=== PATIENT | female | born 1990 | race African-American/Black ===

== ENCOUNTER 2016-03-28 11:44 | Emergency (ER) | payer OTHER ==
[~2016-03-28] VITALS: Ht 165.1 cm; Wt 81.6 kg
[~2016-03-28 11:44] MED LIST: MOBIC 15MG15 MG PO; NAPROSYN375 MG PO; TYLENOL #31 TAB PO
--- NOTE | 2016-03-28 12:52 | ED GENERAL ADULT ---
History of Present Illness General Chief Complaint: Nausea, Vomiting, Diarrhea Stated Complaint: NVD; CONGESTION; COUGH Source: patient Exam Limitations: no limitations Vital Signs & Intake/Output Vital Signs & Intake/Output Vital Signs Date Time Temp Pulse Resp B/P Pulse O2 O2 Flow FiO2 Ox Delivery Rate 03/28 1519 97.0 82 18 112/80 Room Air 03/28 1410 99 Room Air 03/28 1217 96.8 84 20 132/64 95 Room Air Allergies Coded Allergies: No Known Allergies (03/28/16) Reconcile Medications Benzonatate (Tessalon Perle) 100 MG CAPSULE 1 CAP PO TID PRN cough Hyoscyamine (Levsin) 0.125 MG TABLET 1 TAB PO Q4 PRN abdominal spasms Mometasone Furoate (Nasonex) 50 MCG SPRAY.PUMP 2 SPRAY NASB DAILY congestion Ondansetron (Zofran Odt) 4 MG TAB.RAPDIS 1 TAB SL TID PRN nausea Triage Note: C/O VOMITING, DIARRHEA, COUGH, SORE THROAT X 4 DAYS. DENIES . Triage Nurses Notes Reviewed? yes Onset: Gradual Duration: day(s): (4) Timing: remote history Injury Environment: home Severity: moderate Severity Numbers: 7 No Modifying Factors: none : No Patient currently breastfeeds: No HPI: Patient is a 26-year-old female presenting to the emergency department to complain of nausea vomiting and diarrhea, diffuse abdominal discomfort, upper respiratory congestion nothing bad for the past 4 days. Positive malaise. Denies any documented fevers. Her kids are sick with similar symptoms. She does not get a flu vaccine this year. She's been able tolerate fluids but no solids today. Denies any blood in the stool. She does report several episodes, "too many to count" of diarrhea over the past couple days. She feels weak. Denies recent travel. No chest pain or palpitations. No shortness of breath. (JACK MARTIN,DORINDA) Past History Travel History Traveled to [place] past 21 day No Medical History Any Pertinent Medical History? see below for history Neurological: NONE EENT: NONE Cardiovascular: NONE Respiratory: NONE Gastrointestinal: NONE Hepatic: NONE Renal: NONE Musculoskeletal: NONE Psychiatric: NONE Endocrine: NONE Surgical History Surgical History: non-contributory Psychosocial History What is your primary language Persian Tobacco Use: Current Daily Use Daily Tobacco Use Amount/Type: =< 4 Cigarettes daily ETOH Use: denies use Family History Hx Contributory? No (DORINDA SAWYER) Review of Systems Review of Systems Constitutional: Reports: malaise. Comments Review of systems: See HPI, All other systems negative. Constitutional, no weight loss HEENT: No visual changes Cardiovascular: No chest pain ,palpitation , orthopnea or ankle swelling Skin, no jaundice no rashes Respiratory: No dyspnea sputum or hemoptysis GI: Positive nausea, vomiting, diarrhea : No dysuria No hematuria Muscle skeletal: no back pain, no neck pain, Neurologic: No numbness no confusion Psych: No stress anxiety or depression,. Heme/endocrine: No bruising no bleeding no polyuria or polydipsia Immunology: No splenectomy or history of AIDS (DORINDA SAWYER) Physical Exam Physical Exam General Appearance: well developed/nourished, no apparent distress, alert, awake , comfortable Comments: Well-developed well-nourished person in no acute distress HEENT: Pupils equally round and reactive to light and accommodation. Nose is atraumatic. External auditory canal and Tympanic membranes clear. Pharynx normal. No swelling or edema. Mild sinus tenderness palpation of the maxillary sinuses. Clear nasal discharge bilaterally. Neck: Supple, no lymphadenopathy, normal range of motion without pain or tenderness Back: Nontender, no CVA tenderness. Cardiovascular: Regular rate and rhythms no murmurs rubs or gallops, normal JVP Respiratory: Chest nontender. No respiratory distress.breath sounds clear to auscultation bilaterally Abdomen: Soft, nontender nondistended, no appreciable organomegaly. Normal bowel sounds. No ascites, no rebound or guarding. Extremity: No edema Neuro: Alert oriented x3 Skin: No appreciable rash on exposed skin, skin is warm and dry. Psych: Mood and affect is normal, memory and judgment is normal. Core Measures ACS in differential dx? No CVA/TIA Diagnosis: No Severe Sepsis Present: No Septic Shock Present: No (DORINDA SAWYER) Progress Differential Diagnoses I considered the following diagnoses in my evaluation of the patient: Viral syndrome, upper respiratory infection, sinusitis, dehydration, electrolyte abnormality, gastroenteritis, influenza Plan of Care: Orders Procedure Date/time Status CULTURE,STOOL 03/28 1258 Active C.DIFFICILE 03/28 1258 Active COMPREHENSIVE METABOLIC PANEL 03/28 1258 Complete CBC WITHOUT DIFFERENTIAL 03/28 125 Complete Laboratory Tests 03/28/16 1413: Anion Gap 8, Estimated GFR > 60, BUN/Creatinine Ratio 12.9, Glucose 80, Calcium 8.3 L, Total Bilirubin 0.4, AST 22, ALT 30, Alkaline Phosphatase 51, Total Protein 6.6, Albumin 3.7, Globulin 2.9, Albumin/Globulin Ratio 1.3 03/28/16 1336: CBC w Diff NO MAN DIFF REQ, RBC 4.25, MCV 87.5, MCH 30.1, RDW 12.4, MPV 9.3, Gran % 43.7, Lymphocytes % 44.2, Monocytes % 11.0 H, Eosinophils % 0.7, Basophils % 0.4, Absolute Granulocytes 1.3 L, Absolute Lymphocytes 1.3, Absolute Monocytes 0.3, Absolute Eosinophils 0, Absolute Basophils 0, PUBS MCHC 34.4 03/28/16 1258: Urine Test Cancelled Microbiology 03/28 1355 STOOL: Clostridium difficile Toxin A & B - RECD 03/28 135 STOOL: Stool Culture - RECD Initial ED EKG: none Comments: On arrival patient's vital stable. Patient has no abdominal pain on exam. Patient does report upper respiratory congestion, she has clear nasal discharge bilaterally with sinus tenderness to palpation bilaterally. 03/28/2016 2:53:17 PM patient feeling much better after IV hydration, Toradol and Zofran. Tolerating by mouth without difficulty. She was informed of all laboratory results. Unable to to provide urinalysis. Given DC appendicitis exclusion 4. Likely viral syndrome. Requesting work note for the past day and tomorrow. (DORINDA SAWYER) Departure Departure Time of Disposition: 1446 Disposition: HOME OR SELF CARE Condition: Stable Clinical Impression Primary Impression: Upper respiratory infection Qualifiers: URI type: unspecified viral URI Qualified Codes: J06.9 - Acute upper respiratory infection, unspecified; B97.89 - Other viral agents as the cause of diseases classified elsewhere Secondary Impressions: Diarrhea Qualifiers: Diarrhea type: unspecified type Qualified Code: R19.7 - Diarrhea, unspecified Nausea & vomiting Qualifiers: Vomiting type: unspecified Vomiting Intractability: non-intractable Qualified Code: R11.2 - Nausea with vomiting, unspecified Referrals: PATIENT HAS NO PRIMARY CARE DR (PCP/Family) Additional Instructions: Follow-up with your primary care physician collimating appointment. Increase fluids. Take Zofran as prescribed for nausea. Take Levsin as prescribed for abdominal discomfort. Use Nasonex as prescribed to help with congestion. Departure Forms: Customer Survey General Discharge Information Prescriptions: Current Visit Scripts Mometasone Furoate (Nasonex) 2 SPRAY NASB DAILY #1 INHAL Benzonatate (Tessalon Perle) 1 CAP PO TID PRN cough #30 CAP Hyoscyamine (Levsin) 1 TAB PO Q4 PRN abdominal spasms #20 TAB Ondansetron (Zofran Odt) 1 TAB SL TID PRN nausea #10 TAB (DORINDA SAWYER) PA/SCHOOL INSPECTOR Co-Sign Statement Statement: ED Attending supervision documentation- [] I saw and evaluated the patient. I have also reviewed all the pertinent lab results and diagnostic results. I agree with the findings and the plan of care as documented in the PA's/SCHOOL INSPECTOR's documentation. x I have reviewed the ED Record and agree with the PA's/SCHOOL INSPECTOR's documentation. [] Additions or exceptions (if any) to the PAs/SCHOOL INSPECTOR's note and plan are summarized below: [] (QAMAR VELASQUEZ,SEAN) Critical Care Note Critical Care Note Critical Care Time: non-applicable (DORINDA SAWYER)
[2016-03-28 13:52] LABS: ABSOLUTE BASOPHIL COUNT 0 /CUMM (0.0-0.2); ABSOLUTE EOSINOPHIL COUNT 0 /CUMM (0.0-0.7); ABSOLUTE GRANULOCYTE CT 1.3 /CUMM (1.4-6.5); ABSOLUTE LYMPH COUNT 1.3 /CUMM (1.2-3.4); ABSOLUTE MONOCYTE COUNT 0.3 /CUMM (0.10-0.60); BASOPHIL % 0.4 % (0.0-2.0); EOSINOPHIL % 0.7 % (0-5); GRANULOCYTE % 43.7 % (42.2-75.2); HEMATOCRIT 37.2 % (37-47); MEAN CORPUSCULAR HGB 30.1 PG (27.0-31.0); MEAN CORPUSCULAR HGB CONC 34.4 G/DL (33.0-37.0); MEAN CORPUSCULAR VOLUME 87.5 FL (81.0-99.0); MEAN PLATELET VOLUME 9.3 FL (7.4-10.4); PLATELET COUNT 187 /CUMM (130-400); RBC DISTRIBUTION WIDTH 12.4 % (11.5-14.5); RED BLOOD CELL CT 4.25 /CUMM (4.20-5.40)
[2016-03-28] MEDS ORDERED: TESSALON PERLE100 M1 PO (14:47)
[2016-03-28] MEDS ORDERED: NASONEX17 GM NASB (14:47)
[2016-03-28] MEDS ORDERED: ZOFRAN ODT4 M1 SL (14:47)
[2016-03-28] MEDS ORDERED: LEVSIN0.125 M1 PO (14:47)
[2016-03-28 15:19] VITALS: BP 112/80
== END 2016-03-28 15:20 ==
LOC: ERH 11:44
PROVIDERS: Physician Assistant
DX: J06.9 Acute upper respiratory infection, unspecified (principal); R19.7 Diarrhea, unspecified; R11.2 Nausea with vomiting, unspecified
CPT/HCPCS: 81025; 87045; 96374; 96375; J1885; J2405

== ENCOUNTER 2016-06-05 00:12 | Emergency (ER) | payer OTHER ==
[~2016-06-05 00:12] MED LIST changes: +LEVSIN0.125 M1 PO; +NASONEX17 GM NASB; +TESSALON PERLE100 M1 PO; +ZOFRAN ODT4 M1 SL
--- NOTE | 2016-06-05 02:20 | ED UPPER/LOWER EXTREMITY COMPL ---
History of Present Illness General Chief Complaint: Foot or Ankle Injury Stated Complaint: RIGHT ANKLE PAIN S/P FALL Source: patient Exam Limitations: no limitations Vital Signs & Intake/Output Vital Signs & Intake/Output Vital Signs Date Time Temp Pulse Resp B/P Pulse O2 O2 Flow FiO2 Ox Delivery Rate 06/05 0036 97.7 88 18 104/56 97 Allergies Coded Allergies: No Known Allergies (03/28/16) Reconcile Medications Benzonatate (Tessalon Perle) 100 MG CAPSULE 1 CAP PO TID PRN cough Hyoscyamine (Levsin) 0.125 MG TABLET 1 TAB PO Q4 PRN abdominal spasms Ibuprofen 800 MG TABLET 1 TAB PO TID PRN pain Mometasone Furoate (Nasonex) 50 MCG SPRAY.PUMP 2 SPRAY NASB DAILY congestion Ondansetron (Zofran Odt) 4 MG TAB.RAPDIS 1 TAB SL TID PRN nausea Triage Note: PT TO ED C/O RIGHT ANKLE PAIN, BACK PAIN AND RIGHT ARM PAIN AFTER FALLING DOWN 5 STAIRS YESTERDAY MORNING AT 11 AM. PT RIGHT ANKLE SWOLLEN, BRUISED. PT UNABLE TO MOVE ANKLE DUE TO PAIN. PALPABLE DP PULSES. SENSATION INTACT. PT DENIES HITTING HEAD AND DENIES LOC. Triage Nurses Notes Reviewed? yes Onset: Abrupt Duration: day(s): Timing: recent history Severity: moderate Pain/Injury Location: Right: Ankle. Method of Injury: rolled right ankle Modifying Factors: Improves With: rest. Worsens With: movement. Associated Symptoms: swelling, ecchymosis on right lateral aspect of ankle. : No Patient currently breastfeeds: No HPI: 26 yo woman presents with right ankle pain. She fell yesterday morning and rolled her right ankle. "It really hurts... it's swollen ... hard to walk on it... When I rolled it, I heard a snap." She notes no other injury. Past History Travel History Traveled to [place] past 21 day No Medical History Any Pertinent Medical History? see below for history Neurological: NONE EENT: NONE Cardiovascular: NONE Respiratory: NONE Gastrointestinal: NONE Hepatic: NONE Renal: NONE Musculoskeletal: NONE Psychiatric: NONE Endocrine: NONE Surgical History Surgical History: non-contributory Psychosocial History What is your primary language Malagasy Tobacco Use: Current Daily Use Daily Tobacco Use Amount/Type: =< 4 Cigarettes daily Family History Hx Contributory? No Review of Systems Review of Systems Constitutional: Reports: no symptoms. EENTM: Reports: no symptoms. Respiratory: Reports: no symptoms. Cardiovascular: Reports: no symptoms. Gastrointestinal/Abdominal: Reports: no symptoms. Genitourinary: Reports: no symptoms. Musculoskeletal: Reports: no symptoms. Skin: Reports: no symptoms. Neurological/Psychological: Reports: no symptoms. Hematologic/Endocrine: Reports: no symptoms. Immunological: Reports: no symptoms. All Other Systems: Reviewed and Negative Physical Exam Physical Exam General Appearance: well developed/nourished, mild distress Head: atraumatic Eyes: Bilateral: normal appearance. Ears, Nose, Throat: normal pharynx, normal ENT inspection, hearing grossly normal Neck: normal inspection, supple Cardiovascular/Respiratory: regular rate/rhythm Back: normal inspection Leg Right: swelling diffusely around ankle, with tenderness at right lateral malleolus. no obvious deformity. 2+distal pulses, light touch intact. Skin: intact, normal color, warm/dry Lymphatic: no anterior cervical danna Progress Differential Diagnosis: contusion, dislocation, fracture, sprain Plan of Care: Orders Procedure Date/time Status XRY-FOOT COMPLETE, RIGHT 06/05 129 Active XRY-ANKLE 3 OR MORE VIEWS R 06/05 129 Active Diagnostic Imaging: Viewed by Me: Radiology Read. Discussed w/RAD: Radiology Read. Radiology Impression: right ankle/foot - no fx.... Comments: PATIENT: CHELO HENDRIX PRESENT AGE: 26 PATIENT ACCOUNT NO: [id number] : 88 LOCATION: [facility] ORDERING PHYSICIAN: LORETA GAVIRIA MD SERVICE DATE: 06/05/16 EXAM TYPE: RAD - XRY-ANKLE 3 OR MORE VIEWS R; XRY-FOOT COMPLETE, R EXAMINATION: RADIOGRAPHS OF THE RIGHT FOOT AND RIGHT ANKLE CLINICAL INFORMATION: Fracture. Pain and swelling. COMPARISON: Right foot radiographs 04/13/2015. TECHNIQUE: 3 views of the right ankle were obtained and 3 views of the right foot were obtained. FINDINGS: There is nonspecific swelling of the subcutaneous tissues over the medial and lateral malleoli and along the dorsum of the foot. There is no acute fracture or dislocation. No worrisome lytic osseous changes. Joint spaces are maintained. The joint space on the ankle mortise view is unremarkable. No joint effusion. IMPRESSION: Relatively diffuse nonspecific soft tissue swelling of the right foot and ankle. No acute fracture or dislocation. No worrisome lytic osseous changes. DICTATED BY: VALDO MAYO MD DATE/TIME DICTATED:06/05/16254 CHILLER TENDER:CARLOS DATE/TIME TRANSCRIBED:06/05/16254 CONFIDENTIAL, DO NOT COPY WITHOUT APPROPRIATE AUTHORIZATION. <Electronically signed in Other Vendor System> SIGNED BY: VALDO MAYO MD 06/05 0302 Departure Departure Disposition: HOME OR SELF CARE Condition: Stable Clinical Impression Primary Impression: Right ankle sprain Referrals: PATIENT HAS NO PRIMARY CARE DR (PCP/Family) Departure Forms: Customer Survey General Discharge Information Prescriptions: Current Visit Scripts Ibuprofen 1 TAB PO TID PRN pain #60 TAB Comments robin bandage to right ankle by nursing team... pt to follow up with ortho.
[2016-06-05] MEDS ORDERED: IBUPROFEN800 M1 PO (02:33)
--- NOTE | 2016-06-05 03:02 | RADIOLOGY REPORT ---
EXAMINATION: RADIOGRAPHS OF THE RIGHT FOOT AND RIGHT ANKLE CLINICAL INFORMATION: Fracture. Pain and swelling. COMPARISON: Right foot radiographs 04/13/2015. TECHNIQUE: 3 views of the right ankle were obtained and 3 views of the right foot were obtained. FINDINGS: There is nonspecific swelling of the subcutaneous tissues over the medial and lateral malleoli and along the dorsum of the foot. There is no acute fracture or dislocation. No worrisome lytic osseous changes. Joint spaces are maintained. The joint space on the ankle mortise view is unremarkable. No joint effusion. IMPRESSION: Relatively diffuse nonspecific soft tissue swelling of the right foot and ankle. No acute fracture or dislocation. No worrisome lytic osseous changes.
[2016-06-05 03:23] VITALS: BP 110/70
== END 2016-06-05 03:24 ==
LOC: ERH 00:12
DX: S93.401A Sprain of unspecified ligament of right ankle, initial encounter (principal); W10.9XXA Fall (on) (from) unspecified stairs and steps, initial encounter; Y92.9 Unspecified place or not applicable; Y93.9 Activity, unspecified
CPT/HCPCS: 73610-RT; 73630-RT